=== PATIENT | male | born 1960 | race Caucasian/White ===

== ENCOUNTER 2017-07-28 13:21 | Inpatient (IN) | payer BC ==
[~2017-07-28] VITALS: Ht 195.6 cm; Wt 108.0 kg
[2017-07-28 14:46] LABS: Basophils # (auto) 0 uL; Basophils % (auto) 0.8 % (0.0-2.0); Eosinophils # (auto) 0.3 uL; Hematocrit 45.3 % (41.0-53.0); Hemoglobin 15.5 g/dL (13.5-17.5); Lymphocytes # (auto) 1.9 uL; Lymphocytes % (auto) 30.4 % (10.0-50.0); Mean Corpuscular Hemoglobin 30.8 pg (28.0-32.0); Mean Corpuscular Hgb Conc. 34.1 g/dL (32.0-36.0); Mean Corpuscular Volume 90.2 fL (80.0-100.0); Monocytes # (auto) 0.4 uL; Monocytes % (auto) 5.9 % (0.0-12.0); Neutrophils # (auto) 3.7 uL; Neutrophils % (auto) 58.9 % (37.0-80.0); Nucleated Red Blood Cells % 0.1 %; Platelet Count (auto) 262 10^3/uL (140-450); Red Blood Cells 5.03 10^6/uL (4.5-5.90); Red Cell Distribution Width 12.5 % (11.8-14.3); White Blood Cell 6.3 10^3/uL (4.4-10.8)
[2017-07-28 14:58] LABS: Alanine Aminotransferase 65 U/L (16-61); Anion Gap 6 (5-15); Aspartate Aminotransferase 34 U/L (15-37); BUN/Creatinine Ratio 28.6; Blood Urea Nitrogen 18 mg/dL (7-18); Calcium 8.7 mg/dL (8.5-10.1); Carbon Dioxide 26 mmol/L (21-32); Chloride 108 mmol/L (98-107); GFR African American 170 mL/min; GFR Non-African American 141 mL/min; Glucose 128 mg/dL (74-106); Potassium 4.2 mmol/L (3.5-5.1); Sodium 140 mmol/L (136-145)
[2017-07-28 15:02] LABS: Alkaline Phosphatase 119 U/L (45-117); Bilirubin, Total 0.5 mg/dL (0.2-1.0); Total Protein 8.3 g/dL (6.4-8.2)
[2017-07-28] MEDS ORDERED: ASPirin 81 mg TAB PO ONE (15:45)
[2017-07-28 16:10] LABS: INR 0.97 (0.9-1.15); Partial Thromboplastin Time 28.2 sec (22.64-33.71); Prothrombin Time 10.6 sec (9.37-12.3)
[2017-07-28] MEDS ORDERED: NITROGLYCERIN 0.4 MG SL TAB SL PRN (16:30)
[2017-07-28] MEDS ORDERED: MORPHINE SULFATE 8mg/ml INJ SDV IV PRN (16:30)
[2017-07-28] MEDS ORDERED: KETOROLAC TROMETH 30 MG/ML 1ML VIAL IV ONE (16:30)
[2017-07-28 20:40] VITALS: BP 129/74
[2017-07-28] MEDS: ATORVASTATIN 20 MG TAB PO SCH (21:55)
[2017-07-28] MEDS: METOPROLOL TARTRATE 25 MG TAB PO SCH (21:57)
[2017-07-29 01:09] VITALS: BP 129/74
[2017-07-29 05:45] VITALS: BP 120/64
[2017-07-29 06:41] LABS: Chloride 107 mmol/L (98-107); Potassium 4.6 mmol/L (3.5-5.1); Sodium 140 mmol/L (136-145)
[2017-07-29 06:48] LABS: Albumin 3.4 g/dL (3.4-5.0); Anion Gap 8 (5-15); Aspartate Aminotransferase 37 U/L (15-37); BUN/Creatinine Ratio 30.4; Blood Urea Nitrogen 21 mg/dL (7-18); Calcium 8.6 mg/dL (8.5-10.1); Carbon Dioxide 25 mmol/L (21-32); GFR African American 153 mL/min; GFR Non-African American 127 mL/min; Glucose 142 mg/dL (74-106)
[2017-07-29 06:53] LABS: Alanine Aminotransferase 58 U/L (16-61); Alkaline Phosphatase 88 U/L (45-117); Bilirubin, Total 0.8 mg/dL (0.2-1.0)
[2017-07-29 08:00] VITALS: BP 160/90
[2017-07-29 09:28] VITALS: BP 138/89
[2017-07-29] MEDS ORDERED: ADENOSINE 91 MG in GIVE UN-DILUTED 0 ML IV ONE (09:45)
[2017-07-29] MEDS ORDERED: PANTOPRAZOLE 40 MG TAB PO SCH (10:00)
[2017-07-29] MEDS ORDERED: ASPirin 81 mg TAB PO SCH (10:00)
[2017-07-29 12:00] VITALS: BP 154/84
[2017-07-29] MEDS: METOPROLOL TARTRATE 25 MG TAB PO SCH (12:10)
[2017-07-29] MEDS: ATORVASTATIN 20 MG TAB PO SCH (16:55)
[2017-07-29 17:00] VITALS: BP 121/61
== END 2017-07-29 20:30 | disposition home or self-care (01) | DRG 313 ==
LOC: ER 13:21 → TELE 13:22 → TELE-EAST 20:20 → TELE-WESTW 20:38
PROVIDERS: ADMIT Internal Medicine; ATTEND Internal Medicine
DX: R07.89 Other chest pain (principal); I24.9 Acute ischemic heart disease, unspecified; Z82.49 Family history of ischemic heart disease and other diseases of the circulatory system
CPT/HCPCS: 36415; 71046; 76705; 80053; 83735; 84484; 85025; 85610; 85730; 93005; 93017; 94761; 96374; J0153; J1885; J2270